=== PATIENT | female | born 1960 | race Caucasian/White ===

== ENCOUNTER 2021-08-04 17:15 | Outpatient (CLI) | payer OTHER ==
--- NOTE | 2021-08-05 08:23 | XRAY Report ---
PROCEDURE: Shoulder 3 View RT INDICATIONS: RIGHT SHOULDER TENDINITIS TECHNIQUE: 3 views of the shoulder were acquired. COMPARISON: None. FINDINGS: BONES: No acute, displaced fracture or dislocation. The acromioclavicular joint is maintained.Diminis hed acromiohumeral interval, suggesting chronic rotator cuff tear. SOFT TISSUES: No focal abnormality or appreciable pneumothorax. IMPRESSION: 1.No acute osseous abnormality. Reviewed by: Gerardo Che MD on 08/05/2021 8:22 AM PDT Approved by: Gerardo Che MD on 08/05/2021 8:22 AM PDT Station ID: [id number]
== END 2021-08-04 17:25 ==
LOC: DI.S 17:15
PROVIDERS: ATTEND Emergency Medicine
DX: M75.21 Bicipital tendinitis, right shoulder (principal)

== ENCOUNTER 2021-08-06 08:36 | Emergency (ER) | payer OTHER ==
--- NOTE | 2021-08-06 09:05 | ED Physician Documentation ---
PD HPI UPPER EXT INJURY - Stated complaint Stated Complaint: RT SHOULDER PX - Chief complaint Chief Complaint: Ext Problem - History obtained from History obtained from: Patient - History of Present Illness Location: Right Type of injury: No: Fall, Twist (she was doing lifting with shoulder but no particular abrupt injury onset.) Where injury occurred: Home Timing - onset: How many days ago (3-4 days ago onset, with steady worsening.) Timing - duration: Days Timing - details: Gradual onset, Still present Worsened by: Moving, Palpating Associated symptoms: No: Weakness, Numbness, Swelling Similar symptoms before: Has not had sx before Recently seen: Clinic (walk in clinic and got xray and given sling. Told to take tylenol.) Review of Systems Constitutional: denies: Fever, Chills Nose: denies: Rhinorrhea / runny nose, Congestion Throat: denies: Sore throat Respiratory: denies: Cough Skin: denies: Rash, Lesions Neurologic: denies: Focal weakness, Numbness PD PAST MEDICAL HISTORY - Past Medical History Cardiovascular: None Respiratory: None Neuro: None Endocrine/Autoimmune: None - Present Medications Home Medications: Ambulatory Orders Medication Instructions Recorded Confirmed Albuterol Sulfate [Proair Hfa 1 puffs INH Q4HR PRN 08/06/21 08/06/21 Inhaler] Meloxicam [Mobic] 7.5 mg PO BID 10 Days #20 tablet 08/06/21 Ondansetron Odt [Zofran] 4 mg TL Q6H PRN #20 tablet 08/06/21 oxyCODONE [Roxicodone] 5 mg PO Q6H PRN #20 tablet 08/06/21 predniSONE [Deltasone] 10 mg PO DAILY 08/06/21 08/06/21 - Allergies Allergies/Adverse Reactions: Allergies Allergy/AdvReac Type Severity Reaction Status Date / Time Penicillins Allergy Respiratory Verified 08/06/21 09:01 PD ED PE NORMAL - Vitals Vital signs reviewed: Yes - General General: Alert and oriented X 3, Well developed/nourished, Other (appears in considerable pain at shoulder, crying and guarding movement with arm in sling. ) - Neck Neck: Supple, no meningeal sign, No bony TTP, No adenopathy - Cardiac Cardiac: RRR, No murmur - Respiratory Respiratory: Clear bilaterally - Derm Derm: Normal color, Warm and dry, No rash - Extremities Extremities: Other (right shoulder tender anteriorly and with some tender in suprascapular area and toward mid to medial clavicle area. ) - Neuro Neuro: No motor deficit, No sensory deficit Results - Vitals Vitals: Vital Signs - 24 hr 08/06/21 08/06/21 08:52 11:13 Temperature 36.6 C 36.7 C Heart Rate 71 61 Respiratory 18 16 Rate Blood Pressure 136/74 H 108/84 H O2 Saturation 98 95 Oxygen O2 Source Room air Procedures - General procedure General procedure: anterior shoulder tendon area injection with marcaine and [place] for tendonitis. PD MEDICAL DECISION MAKING - ED course Complexity details: reviewed old records (xray from walk in clinic), considered differential (4 days progressive pain in shoulder and clavicle area. some tender to touch. no rash. tendonitis but consider early shingles, to watch for rash.), d/w patient Departure - Departure Disposition: 01 Home, Self Care Clinical Impression: Right shoulder tendonitis Condition: Stable Record reviewed to determine appropriate education?: Yes Follow-Up: Fortunato Schaeffer MD [Provider Admit Priv/Credential] - Prescriptions: Meloxicam [Mobic] 7.5 mg PO BID 10 Days #20 tablet oxyCODONE [Roxicodone] 5 mg PO Q6H PRN #20 tablet PRN Reason: Pain Ondansetron Odt [Zofran] 4 mg TL Q6H PRN #20 tablet PRN Reason: Nausea / Vomiting Comments: Continue with the sling to support the shoulder but be sure to remove the sling several times daily for at least 10 or 15 minutes and do gentle range of motion of the shoulder so as to prevent stiffening and adhesions. Have the sling off at night when sleeping. Call the orthopedic office to see if they will take your insurance for a follow- up appointment without necessarily needing to get a referral through primary care. Continue usual medications. Add meloxicam anti-inflammatory twice daily for the next week with food. Also add Tylenol 500 mg 4 times daily for the next several days to a week. To that add oxycodone every 6 hours if needed for worse pain. Take the ondansetron nausea medicine 20 minutes prior to it to reduce nausea from the medications. That seemed to work well here in the ER. I transmitted your prescriptions to [facility] in [place]. I am prescribing a short course of narcotic pain medication for you. These are potentially dangerous and addictive medications that should be used carefully. These medications may constipate you. Take an [id number] stool softener such as docusate twice daily with plenty of water while taking these medications. If you go 24 hours without a bowel movement, take [id number] MiraLAX, per package instructions. Do not drink or drive while taking these medications. If you received narcotic or sedating medications while in the emergency department do not drive for 24 hours. Store this medication in a safe, secure place and out of reach of children. It is a violation of federal law to give or sell this medication to another person or to use in a manner other than prescribed. The ED will not refill narcotic prescriptions, including prescriptions lost or stolen. You can dispose of unwanted medications at the [facility]'s office or at several pharmacies such as [facility]. Discharge Date/Time: 08/06/21 11:16
[2021-08-06] MEDS ORDERED: TRIAMCINOLONE 40 MG/ML VIAL IM STA (09:24)
[2021-08-06] MEDS ORDERED: HYDROmorphone 1 MG/ML CARPUJECT IM STA (09:24)
[2021-08-06] MEDS ORDERED: KETOROLAC 30 MG/ML VIAL IM STA (09:24)
[2021-08-06] MEDS ORDERED: ONDANSETRON ODT 4 MG TABLET TL STA (09:25)
[2021-08-06] MEDS ORDERED: oxyCODONE 5 MG TABLET PO STA (10:30)
[2021-08-06 11:15] VITALS: BP 108/84
== END 2021-08-06 11:16 | disposition home or self-care (01) ==
LOC: ED 08:36
DX: M75.91 Shoulder lesion, unspecified, right shoulder (principal); M77.8 Other enthesopathies, not elsewhere classified
CPT/HCPCS: 96372; 99283; 99284; A9270; J1170; Q0162